=== PATIENT | female | born 1980 | race African-American/Black ===

== ENCOUNTER 2017-04-10 09:20 | Emergency (ER) | payer MEDICAID ==
[~2017-04-10] VITALS: Ht 157.5 cm; Wt 60.0 kg
[2017-04-10 09:25] VITALS: BP 148/97
[2017-04-10] MEDS ORDERED: LIDOCAINE 1%, 20ML INFIL ONE (10:00)
[2017-04-10] MEDS ORDERED: BUPIVACAINE 0.25% INFIL ONE (10:00)
[2017-04-10] MEDS ORDERED: LIDOCAINE 1%, 20ML ONE (10:02)
[2017-04-10] MEDS ORDERED: BUPIVACAINE 0.25% ONE (10:02)
[2017-04-10] MEDS ORDERED: HYDROcodone/APAP 5/325 TABLET ONE (10:02)
[2017-04-10] MEDS ORDERED: HYDROcodone/APAP 5/325 TABLET PO ONE (10:30)
== END 2017-04-10 10:41 | disposition home or self-care (01) ==
LOC: ED 10:35
DX: K02.9 Dental caries, unspecified (principal)
CPT/HCPCS: 64400